=== PATIENT | female | born 1965 | race Caucasian/White ===

== ENCOUNTER 2017-06-07 18:14 | Emergency (ER) | payer BC ==
[2017-06-07 18:24] VITALS: TEMP 96.8
[2017-06-07] MEDS ORDERED: ACETAMINOPHEN TAB 500 MG TAB PO STA (18:31)
--- NOTE | 2017-06-07 19:19 | ED ---
General Adult HPI - General Chief complaint: Fall Stated complaint: fall Time Seen by Provider: 06/07/17 18:23 Source: patient, RN notes reviewed Mode of arrival: EMS Limitations: altered mental status - History of Present Illness Initial comments: Patient 51-year-old female who presents emergency room today with a chief complaint of a fall. Patient does present by EMS. Patient was at a festival. She states she was sitting her chair and she was trying to scoot backwards when it collapsed and she fell backwards onto her back and hit her head. States unsure if she lost consciousness. She does admit to a headache with neck pain. Also admits to some lower back pain. She states worse on the left lower side of her lower back. She denies any bowel or bladder incontinence retention. Denies any saddle anesthesia. Denies radiculopathy. Patient denies any recent fever, chills, shortness of breath, chest pain, back pain, abdominal pain, nausea or vomiting, numbness or tingling, dysuria or hematuria, constipation or diarrhea, headaches or visual changes, or any other complaints. - Related Data Allergies Allergy/AdvReac Type Severity Reaction Status Date / Time No Known Allergies Allergy Verified 06/07/17 18:19 Review of Systems ROS Statement: Those systems with pertinent positive or pertinent negative responses have been documented in the HPI. ROS Other: All systems not noted in ROS Statement are negative. Past Medical History Past Medical History: Hypertension History of Any Multi-Drug Resistant Organisms: None Reported Past Surgical History: Appendectomy, Section Additional Past Surgical History / Comment(s): breast augmentation Past Psychological History: No Psychological Hx Reported Smoking Status: Current every day smoker Past Alcohol Use History: Occasional General Exam - General Exam Comments Initial Comments: General: The patient is awake and alert, in no distress, and does not appear acutely ill. currently in cervical collar. Eye: Pupils are equal, round and reactive to light, extra-ocular movements are intact. No nystagmus. There is normal conjunctiva bilaterally. No signs of icterus. Ears, nose, mouth and throat: There are moist mucous membranes and no oral lesions. Neck: The neck is supple, there is no tenderness or JVD. Cardiovascular: There is a regular rate and rhythm. No murmur, rub or gallop is appreciated. Respiratory: Lungs are clear to auscultation, respirations are non-labored, breath sounds are equal. No wheezes, stridor, rales, or rhonchi. Gastrointestinal: Soft, non-distended, non-tender abdomen without masses or organomegaly noted. There is no rebound or guarding present. No CVA tenderness. Bowel sounds are unremarkable. Musculoskeletal: patient has normal appearance of cervical thoracic, lumbar spine. No step-offs forms appreciated. Mild tenderness to the lower cervical spine and C6-C7. No tenderness to thoracic. No tenderness over lumbar. Mildly tender to the paravertebral area of the left side lower lumbar.Strength 5 /5. Sensation intact. Pulses equal bilaterally 2+. Neurological: A&O x 3. CN II-XII intact, There are no obvious motor or sensory deficits. Coordination appears grossly intact. Speech is normal. Skin: superficial abrasion to the posterior aspect of the right elbow. Patient shows full range of motion. Psychiatric: Cooperative, appropriate mood & affect, normal judgment. Limitations: altered mental status Course Vital Signs 06/07/17 06/07/17 18:19 19:20 Temperature 96.8 F L Pulse Rate 92 87 Respiratory 17 18 Rate Blood Pressure 131/74 118/65 O2 Sat by Pulse 100 97 Oximetry Medical Decision Making - Medical Decision Making Patient's x-ray of the lumbar spine shows mild spurring and dextroscoliosis. No fracture seen. Patient's CT of the head and neck shows a negative CT scanning of the brain. Shows mild spondylosis and small posterior disc herniation at C5-6. No fracture as read by radiology. When I went back into the room to tell patient of the results she had left without telling anyone. Patient eloped from the emergency room. Nursing staff unaware that she left. was with her at bedside at times here in the emergency room. Again patient did not tell staff that she was leaving. Disposition Clinical Impression: Fall, Cervical disc herniation Disposition: Left Against Medical Advice Condition: Undetermined Referrals: Osvaldo Sam DO [Primary Care Provider] - 1-2 days
[2017-06-07 19:21] VITALS: BP 118/65; PULSE 87; RESP 18
--- NOTE | 2017-06-07 19:53 | CT ---
EXAMINATION TYPE: CT brain nicole donohue DATE OF EXAM: 06/07/2017 COMPARISON: NONE HISTORY: Fall injury today. CT DLP: 1306.8 mGycm Automated exposure control for dose reduction was used. TECHNIQUE: CT scan of the head and cervical spine are performed without contrast. FINDINGS: The ventricles have normal size. There is no mass effect nor midline shift. There is no s ign of intracranial hemorrhage. There is mucosal thickening in the ethmoid and left maxillary sinus. The calvarium is intact. The cervical vertebra have normal alignment. There is mild posterior disc herniation at C5-6. Facet j oints are intact. There is mild hypertrophic facet arthropathy. Skull base appears intact. There is n o sign of a fracture. IMPRESSION: Negative CT scan of the brain. Mild spondylosis and small posterior disc herniation at C5-6. No fracture.
--- NOTE | 2017-06-07 19:55 | XR ---
EXAMINATION TYPE: XR lumbar spine 2 or 3V DATE OF EXAM: 06/07/2017 COMPARISON: NONE HISTORY: Pain TECHNIQUE: 3 views FINDINGS: There is slight lumbar dextroscoliosis. Posterior elements are intact. Abdominal aorta is a theromatous. There is no compression fracture. Sacroiliac joints appear intact. There is mild spurrin g of the endplates. IMPRESSION: Mild spurring and dextroscoliosis. No fracture seen.
== END 2017-06-07 20:20 | disposition left against medical advice (07) ==
LOC: EC 18:14
DX: M50.20 Other cervical disc displacement, unspecified cervical region (principal); S50.311A Abrasion of right elbow, initial encounter; F17.200 Nicotine dependence, unspecified, uncomplicated; W07.XXXA Fall from chair, initial encounter; Y92.89 Other specified places as the place of occurrence of the external cause
CPT/HCPCS: 70450; 72100; 72125; 99284